=== PATIENT | male | born 1955 | race Caucasian/White ===

== ENCOUNTER 2021-11-17 08:44 | Inpatient (IN) | payer OTHER ==
--- OUTSIDE RECORDS SUMMARY | 2021-11-17 08:48 | XMS REPORT | Continuity of Care Document ---
:1955 Author Organization [facility] t Address [facility] [address] [address] [place] [id number] Care Team Providers Name Role Phone GIULIANA Attending Clinician Unavailable Problems This patient has no known problems. Allergies, Adverse Reactions, Alerts This patient has no known allergies or adverse reactions. Medications This patient has no known medications. Procedures This patient has no known procedures. Encounters Start End Encounter Admission Attending Care Care Encounter Source Date/Time Date/Time Type Type Clinicians Facility Department ID 2020-12-31 2020-12-31 [facility] [id number] 00:00:00 00:00:00 EMELIA [email or web address] [facility] 2020-12-31 2020-12-31 Outpatient [facility] [id number] 00:00:00 00:00:00 EMELIA Velasco [facility] Results This patient has no known results.
[2021-11-17] MEDS ORDERED: METOPROLOL TARTRATE 5 MG/5 ML INJ IV ONE (09:28)
[2021-11-17] MEDS ORDERED: NA CHLORIDE 0.9% 500 ML ONE (09:28)
[2021-11-17] MEDS ORDERED: MAGNESIUM SULFATE 1 gm IVPB 1 GM/100 ML BAG IV ONE (09:29)
[2021-11-17 09:30] LABS: Lymphocytes % 17.1 % (15.3-44.8); MPV 8.6 fL (7.6-11.3); RBC Red Blood Cell Count 5.07 M/uL (4.33-5.43)
--- NOTE | 2021-11-17 09:32 | RAD REPORT ---
EXAM DESCRIPTION: RAD - Chest Single View - 11/17/2021 9:23 am CLINICAL HISTORY: PALPITATIONS COMPARISON: CHEST PA AND LAT 2 VIEW dated 04/27/2011 FINDINGS: Lines: None. Lungs: No evidence of edema or pneumonia. Pleural: No significant pleural effusions or pneumothorax. Cardiac: The heart size is within normal limits. Bones: No acute fractures. Other: IMPRESSION: No acute cardiopulmonary disease.
[2021-11-17 10:04] LABS: Potassium 4.5 mmol/L (3.5-5.1); Troponin High Sensitivity 9.2 pg/mL (<58.9)
[2021-11-17] MEDS ORDERED: METOPROLOL TAR 25 MG TAB ONE (10:04)
--- NOTE | 2021-11-17 11:02 | ER ---
Nurse's Notes [facility] Name: Jama Torres Age: 66 yrs Sex: Male : 1955 Arrival Date: 11/17/2021 Time: 08:48 Bed 27 Private MD: Laurent Tinsley V Diagnosis: Paroxysmal atrial fibrillation Presentation: 11/17 08:58 Chief complaint: Patient states: "I went to get a colonoscopy today and they took me to the back and told me my heart rate was 140 and irregular and told me to come here.". Coronavirus screen: Client denies travel out of the [place] in the last 14 days. Ebola Screen: Patient denies exposure to infectious person. Patient denies travel to an Ebola-affected area in the 21 days before illness onset. Initial Sepsis Screen: Does the patient meet any 2 criteria? No. Patient's initial sepsis screen is negative. Does the patient have a suspected source of infection? No. Patient's initial sepsis screen is negative. Risk Assessment: Do you want to hurt yourself or someone else? Patient reports no desire to harm self or others. Onset of symptoms was November 17, 2021. 08:58 Method Of Arrival: Ambulatory 08:58 Acuity: MARLENE 2 ss Historical: - Allergies: 09:00 NKDA; ss - PMHx: 09:00 GERD; Hypertension; ss - Immunization history:: Adult Immunizations up to date, Client reports receiving the 2nd dose of the Covid vaccine. - Social history:: Smoking status: Patient denies any tobacco usage or history of. - Family history:: not pertinent. - Hospitalizations: : No recent hospitalization is reported. Screenin:27 Abuse screen: Denies threats or abuse. Nutritional screening: No deficits noted. ll1 Tuberculosis screening: No symptoms or risk factors identified. 13:39 Fall Risk IV access (20 points). Total Tay Fall Scale indicates No Risk (0-24 pts). ll1 Assessment: 09:26 General: Appears in no apparent distress. Behavior is calm, cooperative, appropriate ll1 for age. Pain: Denies pain. Neuro: No deficits noted. Cardiovascular: Rhythm is atrial fibrillation. Respiratory: No deficits noted. GI: Reports diarrhea, has been doing bowel prep for colonoscopy. 10:20 Reassessment: No changes from previously documented assessment. Patient and/or family ll1 updated on plan of care and expected duration. Pain level reassessed. Patient is alert, oriented x 3, equal unlabored respirations, skin warm/dry/pink. 11:20 Reassessment: No changes from previously documented assessment. Patient and/or family ll1 updated on plan of care and expected duration. Pain level reassessed. Patient is alert, oriented x 3, equal unlabored respirations, skin warm/dry/pink. 12:20 Reassessment: No changes from previously documented assessment. Patient and/or family ll1 updated on plan of care and expected duration. Pain level reassessed. Patient is alert, oriented x 3, equal unlabored respirations, skin warm/dry/pink. 13:05 Reassessment: No changes from previously documented assessment. Patient and/or family ll1 updated on plan of care and expected duration. Pain level reassessed. Patient is alert, oriented x 3, equal unlabored respirations, skin warm/dry/pink. 13:39 Reassessment: No changes from previously documented assessment. Patient and/or family ll1 updated on plan of care and expected duration. Pain level reassessed. Patient is alert, oriented x 3, equal unlabored respirations, skin warm/dry/pink. Report given to JACQUELINE Restrepo. Vital Signs: 08:58 BP 116 / 58; Pulse 160; Resp 20; Temp 97.0(TE); Pulse Ox 100% on R/A; Weight 106.59 kg; ss Height 6 ft. 1 in. (185.42 cm); Pain 0/10; 09:55 BP 122 / 99; Pulse 95; Resp 17; ll1 10:30 BP 125 / 99; Pulse 90; Resp 15; Pulse Ox 100% ; jl7 11:00 BP 123 / 95; Pulse 82; Resp 15; Pulse Ox 100% ; jl7 13:04 BP 118 / 95; Pulse 103; Resp 16; Pulse Ox 100% ; ll1 13:30 BP 109 / 73; Pulse 102; Resp 16; Pulse Ox 99% on R/A; ll1 08:58 Body Mass Index 31.00 (106.59 kg, 185.42 cm) ED Course: 08:48 Patient arrived in ED. mr 08:48 Laurent Tinsley MD is Private Physician. mr 09:00 Triage completed. ss 09:00 Arm band placed on left wrist. ss 09:03 Arnulfo Gonzalez MD is Attending Physician. rn 09:14 Jorge Finney, JACQUELINE is Primary Nurse. ll1 09:14 Patient placed in an exam room, on a stretcher. ll1 09:20 No provider procedures requiring assistance completed. Inserted saline lock: 22 gauge ll1 in right antecubital area, using aseptic technique. Blood collected. 09:25 XRAY Chest (1 view) In Process Unspecified. EDMS 09:27 Patient has correct armband on for positive identification. Bed in low position. Call ll1 light in reach. Side rails up X 1. Client placed on continuous cardiac and pulse oximetry monitoring. NIBP monitoring applied. 11:01 Laurent Tinsley MD is Hospitalizing Provider. rn 13:39 Patient admitted, IV remains in place. ll1 Administered Medications: 09:25 Drug: Metoprolol 5 mg Route: IVP; Site: right antecubital; jl7 12:10 Follow up: Response: No adverse reaction ll1 09:25 Drug: NS 0.9% 500 ml Route: IV; Rate: bolus; Site: right antecubital; jl7 12:10 Follow up: Response: No adverse reaction; IV Status: Completed infusion; IV Intake: ll1 500ml 09:33 Drug: Magnesium Sulfate 1 grams Route: IVPB; Infused Over: 1 hrs; Site: right jl7 antecubital; 12:10 Follow up: Response: No adverse reaction; IV Status: Completed infusion; IV Intake: ll1 100ml 10:04 Drug: Metoprolol 25 mg Route: PO; ll1 12:10 Follow up: Response: No adverse reaction ll1 12:46 Drug: Eliquis (apixaban) 5 mg Route: PO; ll1 13:37 Follow up: Response: No adverse reaction ll1 13:04 Drug: sotaloL 80 mg Route: PO; ll1 13:37 Follow up: Response: No adverse reaction ll1 Medication: 09:27 VIS not applicable for this client. ll1 Intake: 12:10 IV: 100ml; Total: 100ml. ll1 12:10 IV: 500ml; Total: 600ml. ll1 Outcome: 11:01 Decision to Hospitalize by Provider. rn 13:37 Admitted to Tele accompanied by tech, via stretcher, room ED HOLD 27, with chart, ll1 Report called to Kaye Evangelista RN 13:37 Condition: stable 13:37 Instructed on the need for admit. 11/18 08:13 Patient left the ED. vg1 Signatures: Dispatcher [employer] ESCOBAR Rhiannon GomezArnulfo MD MD rn Smirch, Shelby, RN RN ss Aster Valle RN RN jl7 Nicolette Galindo RN RN vg1 Jorge Finney RN RN ll1 Corrections: (The following items were deleted from the chart) 11/17 09:10 08:58 Acuity: MARLENE 3 ss ss 09:11 08:58 BP 116 / 58; Pulse 83bpm; Resp 20bpm; Pulse Ox 100% RA; Temp 97.0F Temporal; ss 106.59 kg; Height 6 ft. 1 in.; BMI: 31.0; Pain 0/10; ss
--- NOTE | 2021-11-17 11:02 | EDPHYS ---
Physician Documentation [facility] Name: Jama Torres Age: 66 yrs Sex: Male : 1955 Arrival Date: 11/17/2021 Time: 08:48 Bed 27 Private MD: Laurent Tinsley V ED Physician Arnulfo Gonzalez HPI: 11/17 09:51 This 66 yrs old Male presents to ER via Ambulatory with complaints of AFIB. rn 09:51 The patient presents with a history of irregular heart beat, heart racing. Context: The rn symptoms occur at rest. Onset: The symptoms/episode began/occurred at an unknown time. Duration: The patient or guardian reports a single episode. Modifying factors: The symptoms are aggravated by nothing. The symptoms are alleviated by nothing. Associated signs and symptoms: Pertinent negatives: chest pain, fever, SOB, syncope. Severity of symptoms: At their worst the symptoms were moderate in the emergency department the symptoms are unchanged. The patient has experienced similar episodes in the past. The patient has been recently seen by a physician:. Sent here by GI, was about to get screening colonoscopy, noted to be in afib with HR in 140s, feels anxious but denies CP/sob. Thinks this has maybe happened in past but goes away on its own. Never actually diagnosed with arrhythmia. . Historical: - Allergies: 09:00 NKDA; ss - PMHx: 09:00 GERD; Hypertension; ss - Immunization history:: Adult Immunizations up to date, Client reports receiving the 2nd dose of the Covid vaccine. - Social history:: Smoking status: Patient denies any tobacco usage or history of. - Family history:: not pertinent. - Hospitalizations: : No recent hospitalization is reported. ROS: 09:51 Constitutional: Negative for fever, chills, and weight loss, Eyes: Negative for injury, rn pain, redness, and discharge, Neck: Negative for injury, pain, and swelling, Cardiovascular: Negative for chest pain, and edema, Respiratory: Negative for shortness of breath, cough, wheezing, and pleuritic chest pain, Abdomen/GI: Negative for abdominal pain, nausea, vomiting, diarrhea, and constipation, Back: Negative for injury and pain, MS/Extremity: Negative for injury and deformity, Skin: Negative for injury, rash, and discoloration, Neuro: Negative for headache, weakness, numbness, tingling, and seizure. Exam: 09:14 ECG was reviewed by the Attending Physician. rn 09:51 Constitutional: This is a well developed, well nourished patient who is awake, alert, rn and in no acute distress. Head/Face: Normocephalic, atraumatic. Eyes: Periorbital areas with no swelling, redness, or edema. Cardiovascular: Tachycardic, irregular Respiratory: Speaking full sentences, unlabored. No increased work of breathing, no retractions or nasal flaring. Abdomen/GI: soft, non-tender Skin: Warm, dry MS/ Extremity: Pulses equal, no cyanosis. Neuro: Awake and alert, GCS 15, oriented to person, place, time, and situation. Cranial nerves II-XII grossly intact. Motor strength 5/5 in all extremities. Sensory grossly intact. Cerebellar exam normal. Normal gait. Vital Signs: 08:58 BP 116 / 58; Pulse 160; Resp 20; Temp 97.0(TE); Pulse Ox 100% on R/A; Weight 106.59 kg; ss Height 6 ft. 1 in. (185.42 cm); Pain 0/10; 09:55 BP 122 / 99; Pulse 95; Resp 17; ll1 10:30 BP 125 / 99; Pulse 90; Resp 15; Pulse Ox 100% ; jl7 11:00 BP 123 / 95; Pulse 82; Resp 15; Pulse Ox 100% ; jl7 13:04 BP 118 / 95; Pulse 103; Resp 16; Pulse Ox 100% ; ll1 13:30 BP 109 / 73; Pulse 102; Resp 16; Pulse Ox 99% on R/A; ll1 08:58 Body Mass Index 31.00 (106.59 kg, 185.42 cm) MDM: 09:03 Patient medically screened. rn 10:17 ED course: HR down to 95, BP 122/99, getting repeat ECG to see if back to sinus. rn 11:00 Differential diagnosis: arrythmia, dehydration, stress disorder. Data reviewed: vital rn signs, nurses notes, lab test result(s), EKG, radiologic studies, plain films, and as a result, I will admit patient. Counseling: I had a detailed discussion with the patient and/or guardian regarding: the historical points, exam findings, and any diagnostic results supporting the discharge/admit diagnosis, lab results, radiology results, the need for further work-up and treatment in the hospital. Response to treatment: the patient's symptoms have markedly improved after treatment, and as a result, I will admit patient. 11:22 ED course: Spoke with nicolas Pastrana to admit, requests consult with cardiology. Paged psychology intern. . 11/17 09:11 Order name: Basic Metabolic Panel; Complete Time: 10:17 rn 11/17 09:11 Order name: CBC with Diff; Complete Time: 09:47 rn 11/17 09:11 Order name: NT PRO-BNP; Complete Time: 10: rn 11/17 09:11 Order name: Troponin HS; Complete Time: : rn 11/17 12:18 Order name: COVID-19 SARS RT PCR (Document "Date of Onset" if Symptomatic) 11/17 18:58 Order name: Magnesium EDNJ 11/17 09:11 Order name: XRAY Chest (1 view); Complete Time: 09:47 rn 11/17 18:58 Order name: Thyroid Stimulating Hormone EDNJ 11/18 03:38 Order name: CBC with Automated Diff EDNJ 11/18 03:45 Order name: Basic Metabolic Panel EDNJ 11/17 09:11 Order name: EKG; Complete Time: 09:12 rn 11/17 09:11 Order name: Cardiac monitoring; Complete Time: : rn 11/17 09:11 Order name: EKG - Nurse/Tech; Complete Time: : rn 11/17 09:11 Order name: IV Saline Lock; Complete Time: : rn 11/17 09:11 Order name: Labs collected and sent; Complete Time: : rn 11/17 09:11 Order name: O2 Per Protocol; Complete Time: : rn 11/17 09:11 Order name: O2 Sat Monitoring; Complete Time: : rn 11/17 10:17 Order name: EKG; Complete Time: : rn 11/17 10:17 Order name: EKG - Nurse/Tech; Complete Time: 11:19 rn 11/17 12:16 Order name: Diet Heart Healthy; Complete Time: 12:17 ll1 EC:14 Rate is 156 beats/min. Rhythm is irregularly irregular. QRS is positive in lead I and rn negative in lead aVF. QRS interval is normal. QT interval is normal. No Q waves. T waves are Normal. No ST changes noted. Clinical impression: Atrial Fibrillation. Interpreted by me. Reviewed by me. Administered Medications: 09:25 Drug: Metoprolol 5 mg Route: IVP; Site: right antecubital; jl7 12:10 Follow up: Response: No adverse reaction ll1 09:25 Drug: NS 0.9% 500 ml Route: IV; Rate: bolus; Site: right antecubital; jl7 12:10 Follow up: Response: No adverse reaction; IV Status: Completed infusion; IV Intake: ll1 500ml 09:33 Drug: Magnesium Sulfate 1 grams Route: IVPB; Infused Over: 1 hrs; Site: right jl7 antecubital; 12:10 Follow up: Response: No adverse reaction; IV Status: Completed infusion; IV Intake: ll1 100ml 10:04 Drug: Metoprolol 25 mg Route: PO; ll1 12:10 Follow up: Response: No adverse reaction ll1 12:46 Drug: Eliquis (apixaban) 5 mg Route: PO; ll1 13:37 Follow up: Response: No adverse reaction ll1 13:04 Drug: sotaloL 80 mg Route: PO; ll1 13:37 Follow up: Response: No adverse reaction ll1 Disposition Summary: 11/17/21 11:01 Hospitalization Ordered Hospitalization Status: Inpatient Admission rn Provider: Laurent Tinsley rn Condition: Stable rn Problem: new rn Symptoms: have improved rn Bed/Room Type: Standard rn Location: Telemetry/MedSurg (Inpatient)(11/18/21 07:17) Room Assignment: [facility](11/18/21 07:17) Diagnosis - Paroxysmal atrial fibrillation rn Forms: - Medication Reconciliation Form rn - SBAR form rn Signatures: Dispatcher [employer] Beatriz Solorio RN RN Arnulfo Gonzalez MD MD rn Smirch, Shelby, RN RN Aster Valle RN RN jl7 Jorge Finney RN RN ll1 Corrections: (The following items were deleted from the chart) 18:17 11:01 Telemetry/MedSurg (Inpatient) [facility] 18:17 11:01 rn 11/18 07:17 11/17 18:17 [facility] ER HOLD ss iw 11/18 07:17 11/17 18:17 ERHOLD- ss iw
[2021-11-17] MEDS ORDERED: APIXABAN 5 MG TABLET ONE ×2 (12:44→20:07)
[2021-11-17] MEDS ORDERED: SOTALOL HCL 80 MG TAB ONE ×3 (13:06→20:08)
[2021-11-17] MEDS ORDERED: ONDANSETRON 4 MG/2 ML VIAL IV PRN (13:07)
[2021-11-17 13:26] VITALS: BMI 30.9
[2021-11-17] MEDS: PANTOPRAZOLE 40MG TABLET PO SCH (17:17)
[2021-11-17] MEDS ORDERED: PANTOPRAZOLE 40MG TABLET PO ONE (17:20)
[2021-11-17] MEDS ORDERED: SOTALOL HCL 80 MG TAB PO SCH (18:00)
--- NOTE | 2021-11-17 18:03 | P.HP ---
Certification for Inpatient Patient admitted to: Observation With expected LOS: <2 Midnights Practitioner: I am a practitioner with admitting privileges, knowledge of patient current condition, hospital course, and medical plan of care. Services: Services provided to patient in accordance with Admission requirements found in Title 42 Section 412.3 of the Code of Federal Regulations Patient History Date of Service: 11/17/21 Reason for admission: RAPID A FIB History of Present Illness: LISETTE HAD RECENT C DIFF TOXIN COLITIS FOR WHICH DR. BENZ TOOK CARE OF IT. HE WAS GOING TO GET COLONOSCOPY BUT EKG SHOWED RAPID A FIB. HE HAD NO SYMPTOMS. HE WAS SENT TO ER. DR. ARAMBULA SAW HIM AND DR. GRANT WAS ALSO CALLED. WE PUT HIM ON SOTALOL AND ELIQUIS. Allergies No Known Drug Aller Allergy (Uncoded 01/28/16 10:39) Unknown Home medications list reviewed: Yes Home Medications: Atorvastatin Calcium [Lipitor] 20 mg PO BEDTIME 11/17/21 Esomeprazole Magnesium [Nexium 24Hr] 20 mg PO DAILY 11/17/21 - Past Medical/Surgical History Has patient received pneumonia vaccine in the past: Yes -: GERD -: cdiff -: HTN - Social History Smoking Status: Former smoker Alcohol use: No CD- Drugs: No Caffeine use: No Review of Systems 10-point ROS is otherwise unremarkable General: Weakness, Malaise Cardiovascular: As per HPI Physical Examination - Vital Signs Temperature: 97.0 F Blood Pressure: 115/87 Pulse: 92 Respirations: 18 Pulse Ox (%): 97 - Physical Exam General: Alert, In no apparent distress HEENT: Atraumatic, PERRLA, Mucous membr. moist/pink, EOMI, Sclerae nonicteric Neck: Supple, 2+ carotid pulse no bruit, No LAD, Without JVD or thyroid abnormality Respiratory: Clear to auscultation bilaterally, Normal air movement Cardiovascular: Irregular heart rate/rhythm, Abnormal S1 S2 Gastrointestinal: Normal bowel sounds, No tenderness Musculoskeletal: No tenderness Integumentary: No rashes Neurological: Normal gait, Normal speech, Normal strength at 5/5 x4 extr, Normal tone, Normal affect Lymphatics: No axilla or inguinal lymphadenopathy - Studies Laboratory Data (last 24 hrs) 11/17/21 09:20: WBC 11.8 H, Hgb 15.8, Hct 47.0, Plt Count 271 11/17/21 09:20: Sodium 138, Potassium 4.5, BUN 13, Creatinine 1.25, Glucose 97 Assessment and Plan - Problems (Diagnosis) (1) Rapid atrial fibrillation Current Visit: Yes Status: Acute Plan: SATOLOL BID. ELIQUIS BID. ECHO WITH DOPPLER MAY GO HOME IN IF STABLE. - Advance Directives Does patient have a Living Will: No Does patient have a Durable POA for Healthcare: No
[2021-11-17 18:58] LABS: Magnesium 2.4 mg/dL (1.8-2.4); Thyroid Stimulating Hormone 1.17 uIU/mL (0.360-3.740)
[2021-11-17] MEDS ORDERED: ATORVASTATIN 20 MG TAB ONE (20:07)
[2021-11-17] MEDS: ATORVASTATIN 20 MG TAB PO SCH (20:28)
[2021-11-17] MEDS: SOTALOL HCL 80 MG TAB PO SCH (20:29)
[2021-11-17] MEDS: APIXABAN 5 MG TABLET PO SCH (20:29)
[2021-11-18 03:30] LABS: Absolute Lymphocytes (CBC) 2.2 K/uL (0.7-4.9); Hematocrit 41.7 % (39.6-49.0); Lymphocytes % 20.4 % (15.3-44.8); MPV 8.7 fL (7.6-11.3); RBC Red Blood Cell Count 4.43 M/uL (4.33-5.43)
[2021-11-18 03:38] LABS: Potassium 4.3 mmol/L (3.5-5.1)
--- NOTE | 2021-11-18 07:56 | EKG ---
Test Date: 2021-11-17 Test Time: 09:03:20 [employer]able Har[employer] Machine Operator: MALAIKA MEASUREMENT RESULTS: Intervals: Rate: 156 ND: QRSD: 80 QT: 282 QTc: 454 [place]: P: ND: QRS: -30 T: 81 INTERPRETIVE STATEMENTS: Atrial fibrillation with rapid ventricular response Left axis deviation Nonspecific ST and T wave abnormality Abnormal ECG Compared to ECG 01/30/1996 10:05:00 Left-axis deviation now present ST (T wave) deviation now present Sinus bradycardia no longer present Electronically Signed On 11-18-21 07:52:28 CDT by Kaushal Jacques
--- NOTE | 2021-11-18 07:56 | EKG ---
Test Date: 2021-11-17 Test Time: 10:52:13 Continuous Yarn Dyeing Machine Operator: TP MEASUREMENT RESULTS: Intervals: Rate: 78 MO: QRSD: 86 QT: 372 QTc: 424 [place]: P: MO: QRS: -15 T: 1 INTERPRETIVE STATEMENTS: Atrial fibrillation Abnormal ECG Compared to ECG 11/17/2021 09:03:20 Left-axis deviation no longer present ST (T wave) deviation no longer present Electronically Signed On 11-18-21 07:52:24 CDT by Kaushal Jacques
[2021-11-18] MEDS: PANTOPRAZOLE 40MG TABLET PO SCH (08:44)
[2021-11-18] MEDS: APIXABAN 5 MG TABLET PO SCH ×2 (08:45→20:27)
[2021-11-18] MEDS: SOTALOL HCL 80 MG TAB PO SCH ×2 (12:13→22:01)
[2021-11-18 13:47] VITALS: O2SAT 100
[2021-11-18] MEDS: ATORVASTATIN 20 MG TAB PO SCH (20:27)
--- NOTE | 2021-11-18 21:49 | P.DS ---
Admission Date: 11/18/21 Discharge Date: 11/18/21 Disposition: ROUTINE DISCHARGE Discharge Condition: FAIR Reason for Admission: RAPID A FIB - Problems (1) Rapid atrial fibrillation Current Visit: Yes Status: Acute Brief History of Present Illness: LISETTE HAD RECENT C DIFF TOXIN COLITIS FOR WHICH DR. BENZ TOOK CARE OF IT. HE WAS GOING TO GET COLONOSCOPY BUT EKG SHOWED RAPID A FIB. HE HAD NO SYMPTOMS. HE WAS SENT TO ER. DR. ARAMBULA SAW HIM AND DR. GRANT WAS ALSO CALLED. WE PUT HIM ON SOTALOL AND ELIQUIS. Hospital Course: MR MUÑIZ IS VERY COMFORTABLE. HE HAS TOLERATED BETAPACE WELL, HE HAS NO SYMPTOMS OF A FIB. HE WILL GO HOME ON ELIQUIS AND BETAPACE, FU WITH DR. GRANT FOR CONVERSION IF NEED. Vital Signs/Physical Exam: Temp Pulse Resp BP Pulse Ox 97.4 F 87 18 138/84 100 11/18/21 16:00 11/18/21 16:00 11/18/21 16:00 11/18/21 16:00 11/18/21 16:00 Laboratory Data at Discharge: WBC 10.9 K/uL (4.3-10.9) 11/18/21 03:00 Hgb 14.3 g/dL (13.6-17.9) 11/18/21 03:00 Hct 41.7 % (39.6-49.0) 11/18/21 03:00 Plt Count 216 K/uL (152-406) D 11/18/21 03:00 Sodium 138 mmol/L (136-145) 11/18/21 03:00 Potassium 4.3 mmol/L (3.5-5.1) 11/18/21 03:00 BUN 18 mg/dL (7-18) 11/18/21 03:00 Creatinine 1.17 mg/dL (0.55-1.3) 11/18/21 03:00 Glucose 101 mg/dL (74-106) 11/18/21 03:00 Magnesium 2.4 mg/dL (1.8-2.4) 11/17/21 18:26 Home Medications: Atorvastatin Calcium [Lipitor*] 20 mg PO BEDTIME 11/17/21 Esomeprazole Magnesium [Nexium 24Hr] 20 mg PO DAILY 11/17/21 Apixaban [Eliquis] 5 mg PO BID #60 tablet 11/18/21 Atorvastatin Calcium [Lipitor*] 20 mg PO BEDTIME tab 11/18/21 Sotalol HCl [Betapace*] 80 mg PO Q12H #60 tab 11/18/21 New Medications: Sotalol HCl [Betapace*] 80 mg PO Q12H #60 tab Apixaban [Eliquis] 5 mg PO BID #60 tablet Followup: Laurent Tinsley MD [Primary Care Provider] -
[2021-11-18 23:08] VITALS: BP 126/76; TEMP 99.9
--- NOTE | 2021-11-19 09:26 | ECHO ---
HEIGHT: 6 ft 1 in WEIGHT: 234 lb 15.852 oz DATE OF STUDY: 11/18/[address]: Laurent Tinsley MD 2-DIMENSIONAL: YES M.MODE: YES DOPPLER: YES COLOR FLOW: YES TDS: PORTABLE: YES DEFINITY: BUBBLE STUDY: DIAGNOSIS: ATRIAL FIBRILLATION CARDIAC HISTORY: CATHERIZATION: NO SURGERY: NO PROSTHETIC VALVE: NO PACEMAKER: NO MEASUREMENTS (cm) DIASTOLIC (NORMALS) SYSTOLIC (NORMALS) IVSd 1.0 (0.6-1.2) LA Diam 3.2 (1.9-4.0) LVEF 51% LVIDd 3.8 (3.5-5.7) LVIDs 2.9 (2.0-3.5) %FS 25% LVPWd 1.2 (0.6-1.2) Ao Diam 2.9 (2.0-3.7) 2 DIMENSIONAL ASSESSMENT: RIGHT ATRIUM: NORMAL LEFT ATRIUM: NORMAL RIGHT VENTRICLE: NORMAL LEFT VENTRICLE: NORMAL TRICUSPID VALVE: NORMAL MITRAL VALVE: NORMAL PULMONIC VALVE: NORMAL AORTIC VALVE: NORMAL PERICARDIAL EFFUSION: NONE AORTIC ROOT: NORMAL LEFT VENTRICULAR WALL MOTION: NORMAL DOPPLER/COLOR FLOW: MILD MITRAL REGURGITATION COMMENTS: LOW NORMAL LEFT VENTRICULAR EJECTION FRACTION - 50%. ATRIAL FIBRILLATION. MILD MITRAL REGURGITATION. NORMAL WALL MOTION. TECHNOLOGIST: GROVER COOK
--- NOTE | 2021-11-23 12:45 | CON ---
Date of Consultation: 11/17/[address] Tinsley's service for atrial fibrillation on 11/17/2021. He was seen on 11/17/2021. Reason For Consultation: New-onset atrial fibrillation. History Of Present Illness: Mr. Torres is a 66-year-old white male who has a history of dyslipidemia, hypertension, gastroesophageal reflux disease, has been dealing with C difficile lately, was going to have a colonoscopy by Dr. Fontaine and found to be in atrial fibrillation. He was sent to the emergen cy room. He does complain of palpitations intermittently for the last 20 years but has never had doc umented atrial fibrillation. Denies any chest pain, shortness of breath, nausea, vomiting, diaphores is, PND, orthopnea, pedal edema, or syncope. Denied any fever or chills. Past Medical History: As stated above. Allergies: NONE. Review of Systems: Negative. Social History: Negative. Family History: Negative. Medications: Include Lipitor and Nexium. Physical Examination: General: Very pleasant, no acute distress, atrial fibrillation, rate of 90. HEENT: Negative. Neck: Supple with no bruit. Chest: Clear to auscultation and percussion. Cardiac: Revealed atrial fibrillation. Abdomen: Benign. Extremities: Revealed no clubbing, cyanosis, or edema. Diagnostic Data: All within normal limit including chest x-ray and blood work. EKG showed atrial fi brillation . Impression And Plan: 1.Atrial fibrillation, possibly new onset, although the patient has been having intermittent palpita tions for 20 years. This could be more chronic and paroxysmal . I agree with sotalol and Eliquis. We need to continue his Lipitor and Nexium. He can certainly have his colonoscopy by Dr. Lambert hernández. We will have to hold his Eliquis for a day or 2 before his colonoscopy. Nevertheless, I thin k an echocardiogram which was done was normal without any thrombus or left atrial enlargement. I thi nk he needs to have an MPI soon and seen in the office. If he continues to be in atrial fibrillation , we will perform a direct current cardioversion and keep him on sotalol. I will discuss the case fu rther with Dr. Tinsley. He can go home whenever it is okay with him. NB/ANNETTE Voice ID: [id number] Report ID: [id number]
== END 2021-11-18 22:25 | disposition home or self-care (01) | DRG 310 ==
LOC: ER 08:44 → ERHOLD 12:13 → 2ND 11-18 07:57 → OBSVTOIN 11-18 20:33
PROVIDERS: ADMIT Internal Medicine; ATTEND Internal Medicine
DX: I48.91 Unspecified atrial fibrillation (principal); K21.9 Gastro-esophageal reflux disease without esophagitis; I10 Essential (primary) hypertension; E78.5 Hyperlipidemia, unspecified; Z87.891 Personal history of nicotine dependence
CPT/HCPCS: 36415; 71045; 80048; 83735; 83880; 84443; 84484; 85025; 93005; 93306; 96365; 96366; 96375; 99285; G0378; J3475; J7040

== ENCOUNTER 2021-12-07 06:30 | Day surgery (SDC) | payer OTHER ==
[2021-12-06 13:35] LABS: Absolute Lymphocytes (CBC) 2.6 K/uL (0.7-4.9); Lymphocytes % 26.8 % (15.3-44.8); MPV 9.3 fL (7.6-11.3); RBC Red Blood Cell Count 4.77 M/uL (4.33-5.43)
[2021-12-06 13:39] LABS: Protime INR 1.24
[2021-12-06 13:52] LABS: Potassium 4.7 mmol/L (3.5-5.1)
[2021-12-07] MEDS ORDERED: HEPA 1000U/500MLS 1,000 UNIT/500 ML BAG IV ONE (06:48)
[2021-12-07] MEDS ORDERED: MIDAZOLAM HCL 2 MG/2 ML INJ ONE (06:49)
[2021-12-07] MEDS ORDERED: LIDOCAINE 1% 20 ML MDV ONE (06:49)
[2021-12-07] MEDS ORDERED: METOPROLOL TARTRATE 5 MG/5 ML INJ IV ONE (06:49)
[2021-12-07] MEDS ORDERED: FENTANYL CITR 100 MCG/2 ML ONE (06:49)
[2021-12-07] MEDS ORDERED: MIDAZOLAM HCL 10 ML ONE (06:50)
[2021-12-07] MEDS ORDERED: FLUMAZENIL 0.1 MG/ML (5 mL VIAL) IV ONE (06:50)
[2021-12-07] MEDS ORDERED: ATROPINE SULF 1 MG/10 ML SYR IV ONE (06:50)
[2021-12-07] MEDS ORDERED: NA CHLORIDE 0.9% 500 ML ONE (07:31)
[2021-12-07 08:13] VITALS: TEMP 97
[2021-12-07 10:13] VITALS: BP 120/72; O2SAT 100
--- NOTE | 2021-12-07 13:44 | OP ---
Surgeon: Kaushal Jacques MD Back Stayer: Ms. Chandni Martinez. Admitted to my service as an outpatient on 12/07/2021. Procedure: Direct current cardioversion. Indication: Atrial fibrillation that has failed sotalol. Mr. Torres is a 66. History of mitral regur gitation, recurrent atrial fibrillation, on sotalol 80 b.i.d., on Eliquis. Procedure In Detail: Brought to the recovery room today as an outpatient. He was given 12 mg of Shae sed IV push total. He was given 1 shock of 200 joules and he converted to sinus rhythm. There were no complications. No blood loss. Postoperative Diagnosis: Successful cardioversion from atrial fibrillation to sinus rhythm. We will plan to discharge him after he wakes up. No changes in medical therapy. Continue sotalol an d Eliquis. Anesthesia: Total conscious sedation was about 30 minutes. NB/MODL Voice ID: [id number] Report ID: [id number]
--- NOTE | 2021-12-08 08:10 | EKG ---
Test Date: 2021-12-07 Test Time: 07:50:51 Senior Industrial Engineer: ORTIZ MEASUREMENT RESULTS: Intervals: Rate: 74 SD: 160 QRSD: 82 QT: 414 QTc: 459 [place]: P: 25 SD: 160 QRS: -30 T: -17 INTERPRETIVE STATEMENTS: Normal sinus rhythm Possible Left atrial enlargement Left axis deviation Nonspecific ST and T wave abnormality Abnormal ECG Compared to ECG 11/17/2021 10:52:13 Left-axis deviation now present ST (T wave) deviation now present Atrial fibrillation no longer present Electronically Signed On 12-08-21 08:05:50 CDT by Kaushal Jacques
== END 2021-12-07 09:40 | disposition home or self-care (01) ==
LOC: CCL 06:30
DX: I48.0 Paroxysmal atrial fibrillation (principal); I34.0 Nonrheumatic mitral (valve) insufficiency; E78.2 Mixed hyperlipidemia; K21.9 Gastro-esophageal reflux disease without esophagitis; Z87.891 Personal history of nicotine dependence; Z20.822 Contact with and (suspected) exposure to COVID-19; Z82.49 Family history of ischemic heart disease and other diseases of the circulatory system
CPT/HCPCS: 93005; 85025; 80048; 36415; 85610; 85730; 92960; U0003; J2250 ×2; J7040; J1644; J3010

== ENCOUNTER 2022-01-10 08:40 | Day surgery (SDC) | payer OTHER ==
[2022-01-07 08:58] LABS: Hematocrit 42.9 % (39.6-49.0); Lymphocytes % 25.4 % (15.3-44.8); MCV 93.1 fL (80-100); MPV 8.8 fL (7.6-11.3); RBC Red Blood Cell Count 4.61 M/uL (4.33-5.43)
[2022-01-07 09:02] LABS: Protime INR 1.32
[2022-01-07 09:09] LABS: Potassium 4.4 mmol/L (3.5-5.1)
--- NOTE | 2022-01-08 09:03 | EKG ---
Test Date: 2022-01-07 Test Time: 08:35:33 Supervisor Line Department: [facility] MEASUREMENT RESULTS: Intervals: Rate: 75 IA: 156 QRSD: 90 QT: 422 QTc: 471 [place]: P: 55 IA: 156 QRS: -3 T: 52 INTERPRETIVE STATEMENTS: Normal sinus rhythm Normal ECG Compared to ECG 12/07/2021 07:50:51 Left-axis deviation no longer present ST (T wave) deviation no longer present Electronically Signed On 01-08-22 09:02:35 CDT by Kaushal Jacques
[2022-01-10] MEDS ORDERED: MIDAZOLAM HCL 2 MG/2 ML INJ ONE (08:50)
[2022-01-10] MEDS ORDERED: FLUMAZENIL 0.1 MG/ML (5 mL VIAL) IV ONE (08:50)
[2022-01-10] MEDS ORDERED: METOPROLOL TARTRATE 5 MG/5 ML INJ IV ONE (08:50)
[2022-01-10] MEDS ORDERED: MIDAZOLAM HCL 15 ML ONE (08:50)
[2022-01-10] MEDS ORDERED: ATROPINE SULF 1 MG/10 ML SYR IV ONE (08:50)
[2022-01-10] MEDS ORDERED: NA CHLORIDE 0.9% 500 ML ONE (09:08)
[2022-01-10 09:56] VITALS: O2SAT 99
[2022-01-10 10:48] VITALS: BP 111/80
--- NOTE | 2022-01-10 12:00 | OP ---
Date of Procedure: 01/10/2022 Surgeon: Kaushal Jacques MD Procedure: Direct current cardioversion. Indication: Atrial fibrillation and flutter that had failed sotalol and failed amiodarone. Mr. Torres is 66, has been on amiodarone 400 b.i.d. and then 200 mg daily, remained in atrial flutter at a rate of 150 to 160. With a combination of atrial fibrillation and flutter, he has been on Eliquis, had f nicky sotalol. Procedure In Detail: I did a cardioversion on him and he went into normal rhythm and then he went ba ck into atrial fibrillation. He was placed on amiodarone. Now, he is back to the hospital for anoth er cardioversion. He received a total of 10 mg of Versed IV push. He received 1 shock of 200 joules and he converted to sinus rhythm. There were no complications or blood loss. Final Diagnosis: Status post successful cardioversion from atrial fibrillation to sinus rhythm. Pat ient has failed sotalol. We will continue amiodarone at 200 b.i.d. I would consider EP appointment for a possible ablation. The patient can go home whenever he wakes up. WALT/ANNETTE Voice ID: [id number] Report ID: [id number]
--- NOTE | 2022-01-11 08:17 | EKG ---
Test Date: 2022-01-10 Test Time: 09:40:28 [employer] Teacher: REGGIE MEASUREMENT RESULTS: Intervals: Rate: 81 NV: 160 QRSD: 96 QT: 396 QTc: 460 [place]: P: 28 NV: 160 QRS: -38 T: 29 INTERPRETIVE STATEMENTS: Normal sinus rhythm Possible Left atrial enlargement Left axis deviation Abnormal ECG Compared to ECG 01/07/2022 08:35:33 Left-axis deviation now present Electronically Signed On 01-11-22 08:12:52 CDT by Kaushal Jacques
== END 2022-01-10 10:40 | disposition home or self-care (01) ==
LOC: CCL 08:40
DX: I48.0 Paroxysmal atrial fibrillation (principal); I34.0 Nonrheumatic mitral (valve) insufficiency; E78.2 Mixed hyperlipidemia; K21.9 Gastro-esophageal reflux disease without esophagitis; Z79.01 Long term (current) use of anticoagulants; Z79.899 Other long term (current) drug therapy; Z87.891 Personal history of nicotine dependence; Z82.49 Family history of ischemic heart disease and other diseases of the circulatory system
CPT/HCPCS: 93005 ×2; 85025; 80048; 36415; 85610; 85730; 92960; J2250; J7040